=== PATIENT | female | born 2000 | race Caucasian/White ===

== ENCOUNTER 2022-01-15 09:25 | Emergency (ER) | payer MEDICAID, OTHER ==
[~2022-01-15] VITALS: Ht 157.5 cm; Wt 61.0 kg
[2022-01-15] MEDS ORDERED: LIDOCAINE HCL/PF 1% 10 MG/ML 5ML VIAL INFIL ONE (10:15)
[2022-01-15] MEDS ORDERED: BACITRACIN ZINC OINT UDPKT TOP ONE (10:15)
[2022-01-15] MEDS ORDERED: IBUPROFEN 600MG TABLET PO ONE (10:15)
[2022-01-15] MEDS ORDERED: NAPR-681 MT (11:11)
[2022-01-15 12:03] VITALS: BP 126/86
== END 2022-01-15 12:04 | disposition home or self-care (01) ==
LOC: ER 09:40
DX: S91.312A Laceration without foreign body, left foot, initial encounter (principal); W20.8XXA Other cause of strike by thrown, projected or falling object, initial encounter; Y93.89 Activity, other specified; Y92.89 Other specified places as the place of occurrence of the external cause; Y99.0 Civilian activity done for income or pay
CPT/HCPCS: 12001; 73610; 73630; 81025; 99284; J3490